=== PATIENT | female | born 1945 | race Caucasian/White ===

== ENCOUNTER 2017-07-15 06:11 | Outpatient (CLI) | payer MEDICARE, OTHER | END 2017-07-15 06:12 | disposition critical access hospital (66) | LOC: EMS 06:11 | PROVIDERS: ATTEND Surgery | DX: R07.9 Chest pain, unspecified (principal) | CPT/HCPCS: A0425; A0427 ==

== ENCOUNTER 2017-08-20 09:59 | Outpatient (CLI) | payer MEDICARE, OTHER ==
--- NOTE | 2017-08-21 17:01 | Mammography Report ---
DATE OF SERVICE: 08/20/2017 DIGITAL SCREENING MAMMOGRAM: 08/20/2017 CLINICAL INDICATION: A 72-year-old with a history of benign biopsy, for screening. COMPARISON: 07/2013, 12/2011, 07/2010. TECHNIQUE: Routine CC and MLO projections were obtained of the breasts. FINDINGS: The breasts demonstrate scattered fibroglandular densities bilaterally. There is a possible nodule in the right retroareolar breast. Further evaluation with spot compression views and possible ultrasound is recommended. A few coarse, typically benign calcifications are present. IMPRESSION: INCOMPLETE EXAMINATION. RECOMMENDATION: ADDITIONAL EVALUATION OF THE RIGHT BREAST ABOVE. BIRADS CATEGORY 0-INCOMPLETE. STANDARD QUALIFYING STATEMENTS: 1. This examination was reviewed with the aid of Computer-Aided Detection (CAD). 2. A negative or benign imaging report should not delay biopsy if clinically suspicious findings are present. Consider surgical consultation if warranted. More than 5% of cancers are not identified by imaging. 3. Dense breasts may obscure an underlying neoplasm. TD: 08/21/2017 18:01
== END 2017-08-20 10:00 | disposition home or self-care (01) ==
LOC: DI 09:59
PROVIDERS: ATTEND Physician Assistant
DX: Z12.31 Encounter for screening mammogram for malignant neoplasm of breast (principal); R92.8 Other abnormal and inconclusive findings on diagnostic imaging of breast
CPT/HCPCS: 77067

== ENCOUNTER 2017-08-20 10:00 | Outpatient (CLI) | payer MEDICARE, OTHER ==
--- NOTE | 2017-08-21 10:35 | DEXA Report ---
DEXA: 08/20/2017 CLINICAL INDICATION: Postmenopausal. TECHNIQUE: Dual energy x-ray absorptiometry (DXA) was performed on a Reel[employer] system. Regions measured are the AP spine, femoral neck, and, if needed, forearm. COMPARISON: None. In accordance with the International Society for Clinical Densitometry (ISCD) guidelines, data from previous exams may be reanalyzed using current recommendations and techniques. This is done to allow a more accurate basis for comparison with the current study. FINDINGS The data for the lumbar spine is as follows: REGION BMD (g/cm/cm) T-SCORE Z-SCORE L1 1.022 -0.9 0.6 L2 1.087 -0.9 0.6 L3 1.332 1.1 2.6 L4 1.301 0.8 2.4 TOTAL 1.197 0.1 1.7 NOTE: All evaluable vertebrae are used for classification. The data for the hip is as follows: REGION BMD (g/cm/cm) T-SCORE Z-SCORE Neck 0.821 -1.6 0.2 TOTAL 0.916 -0.7 0.8 NOTE: The femoral neck or total proximal femur, whichever is lowest, is used for classification. IMPRESSION THE WHO CLASSIFICATION BASED ON THE INTERNATIONAL REFERENCE STANDARD IS OSTEOPENIA (REFERENCE LEFT FEMORAL NECK). THE FRACTURE RISK IS INCREASED. RECOMMENDATION: Patients with diagnosis of osteoporosis or osteopenia should have regular bone mineral density assessment. For those eligible for Medicare, routine testing is allowed once every 2 years. Testing frequency can be increased for patients who have rapidly progressing disease or for those who are receiving medical therapy to restore bone mass. COMMENT: World Health Organization (WHO) definitions for osteoporosis and osteopenia: NORMAL BMD: T-score at 1.0 or higher, fracture risk is low. OSTEOPENIA BMD: T-score between 1.0 and -2.5, fracture risk is increased. OSTEOPOROSIS BMD: T-score at 2.5 or lower, fracture risk high. National Osteoporosis Foundation recommends: 1. Obtain adequate dietary calcium (at least 1200 mg per day) and vitamin D (400 -800 international units per day). 2. Participate, as appropriate, in regular weightbearing and muscle- strengthening exercise. 3. Avoid tobacco use and reduce alcohol and caffeine intake. 4. For more detailed information see the website at www.NOF.org. TD: 08/20/2017 17:52 MTDD
== END 2017-08-20 10:01 | disposition home or self-care (01) ==
LOC: DI 10:00
PROVIDERS: ATTEND Physician Assistant
DX: Z13.820 Encounter for screening for osteoporosis (principal); M85.88 Other specified disorders of bone density and structure, other site; Z78.0 Asymptomatic menopausal state
CPT/HCPCS: 77080

== ENCOUNTER 2017-11-02 11:28 | Outpatient (CLI) | payer MEDICARE, OTHER ==
--- NOTE | 2017-11-02 15:07 | Mammography Report ---
RIGHT BREAST MAMMOGRAM ADDITIONAL VIEWS; AND RIGHT BREAST ULTRASOUND: 2017 HISTORY: Followup of possible nodule on 08/20/2017 screening mammogram. TECHNIQUE: Additional true lateral and spot compression CC and MLO projections were obtained of the right breast. FINDINGS: RIGHT BREAST ADDITIONAL VIEWS: The nodular density in the subareolar right breast persists on additional views. RIGHT BREAST ULTRASOUND: Real-time scanning of the right breast in the subareolar region with saved static images reviewed. Corresponding to the finding on mammography is a 5 x 4 x 4 mm simple cyst with a single septation in the subareolar 12-o'clock position. No solid mass is seen. IMPRESSION: BENIGN FINDING RIGHT BREAST. BI-RADS 2 - BENIGN FINDINGS. RECOMMENDATIONS: SUGGEST RETURN TO ROUTINE SCREENING IN 12 MONTHS. STANDARD QUALIFYING STATEMENTS 1. This examination was reviewed with the aid of Computer-Aided Detection (CAD) . 2. A negative or benign imaging report should not delay biopsy if clinically suspicious findings are present. Consider surgical consultation if warranted. More than 5 % of cancers are not identified by imaging. 3. Dense breasts may obscure an underlying neoplasm. TD: 11/02/2017 13:18 MATTHIEU
== END 2017-11-02 11:29 | disposition home or self-care (01) ==
LOC: DI 11:28
PROVIDERS: ATTEND Physician Assistant
DX: N60.01 Solitary cyst of right breast (principal)
CPT/HCPCS: 76642

== ENCOUNTER 2018-07-24 13:13 | Outpatient (CLI) | payer MEDICARE, OTHER ==
--- NOTE | 2018-07-26 10:00 | Ultrasound Report ---
Reason: LLQ PAIN,INTERMITTENT Procedure Date: 07/24/2018 Accession Number: [id number] / [id number] Procedure: US - Pelvic w/Transvaginal CPT Code: FULL RESULT: EXAM: PELVIC ULTRASOUND EXAM DATE: 07/24/2018 01:21 PM. CLINICAL HISTORY: Intermittent left lower quadrant pain. COMPARISON: None. TECHNIQUE: Realtime transabdominal pelvic scan performed to identify the uterus and adnexa and as an overview of other pelvic structures, followed by transvaginal scan to provide greater detail of the uterus and adnexa, with static image documentation. FINDINGS: Uterus: Surgically absent. Right Ovary: 2.1 x 1.2 x 1.2 cm, volume 1.6 cc. Normal echotexture and blood flow. Left Ovary: 1.7 x 1.2 x 1.2 cm, volume 1.3 cc. Normal echotexture and blood flow. Free Fluid: None. Other: None. IMPRESSION: Normal-appearing ovaries. RADIA
== END 2018-07-24 13:14 | disposition home or self-care (01) ==
LOC: DI 13:13
PROVIDERS: ATTEND Physician Assistant
DX: R10.32 Left lower quadrant pain (principal)
CPT/HCPCS: 76830; 76856

== ENCOUNTER 2021-05-13 08:00 | Outpatient (CLI) | payer MEDICARE, OTHER | END 2021-05-13 23:59 | LOC: LAB.N 08:00 | PROVIDERS: ATTEND Nurse Practitioner | DX: U07.1 COVID-19 (principal) ==

== ENCOUNTER 2023-11-11 14:59 | Emergency (ER) | payer MEDICARE, OTHER ==
--- NOTE | 2023-11-11 15:19 | ED Physician Documentation ---
PD HPI URI - Stated complaint Stated Complaint: COUGH,SORE THROAT - Chief complaint Chief Complaint: Resp - History obtained from History obtained from: Patient - Additional information Additional information: 78-year-old woman with history of coronary disease presents with a productive cough for the last 5 days. She thinks she has bronchitis. She has had several times in the past. She had a fever 4 days ago but not since. Cough is productive of thick tannish sputum. Her is not sick. No home COVID test. PD PAST MEDICAL HISTORY - Past Medical History Past Medical History: Yes Cardiovascular: Hypertension, High cholesterol, Coronary artery disease - Past Surgical History Past Surgical History: Yes Cardiovascular: Angioplasty - Present Medications Home Medications: Ambulatory Orders Medication Instructions Recorded Confirmed Benzonatate 200 mg PO QID PRN #20 cap 11/11/23 Potassium Chloride [K-Dur] 20 meq PO ONCE 11/11/23 11/11/23 levoFLOXacin [Levofloxacin] 750 mg PO DAILY #5 tab 11/11/23 - Allergies Allergies/Adverse Reactions: Allergies Allergy/AdvReac Type Severity Reaction Status Date / Time cefaclor [From Ceclor] Allergy Dizziness Verified 11/11/23 15:02 morphine Allergy Hallucinati Verified 11/11/23 15:02 ons Penicillins Allergy Rash Verified 11/11/23 15:02 Sulfa (Sulfonamide Allergy Rash Verified 11/11/23 15:02 Antibiotics) gluten AdvReac Cramps Verified 11/11/23 15:02 - Social History Does the pt smoke?: No Smoking Status: Never smoker - Immunizations Immunizations are current?: Yes PD ED PE NORMAL - Vitals Vital signs reviewed: Yes - General General: Alert and oriented X 3, No acute distress - Cardiac Cardiac: RRR, No murmur - Respiratory Respiratory: Other (Mildly wheezy and diminished throughout without focal findings. Nonlabored. Does have a frequent cough.) - Abdomen Abdomen: Non tender Results - Vitals Vitals: Vital Signs - 24 hr 11/11/23 11/11/23 15:02 15:51 Temperature 36.3 C L Heart Rate 81 78 Respiratory 16 16 Rate Blood Pressure 182/89 H 176/86 H O2 Saturation 97 98 Oxygen O2 Source Room air - Rads (name of study) Asymmetric interstitial prominence which I suspect represents a right middle lobe pneumonia. Relevant Findings:: Final report received, EMP independent interpretation of test PD Medical Decision Making - ED course ED course: She presents with signs and symptoms consistent with a mild pneumonia. She does not appear septic. Given the x-ray findings I do think she needs antibiotics. Chose a respiratory fluoroquinolone given extensive antibiotic allergies. Departure - Departure Disposition: 01 Home, Self Care Clinical Impression: Pneumonia Condition: Good Record reviewed to determine appropriate education?: Yes Instructions: ED Pneumonia Adult Prescriptions: Benzonatate 200 mg PO QID PRN #20 cap PRN Reason: Cough levoFLOXacin [Levofloxacin] 750 mg PO DAILY #5 tab Comments: I sent your prescriptions electronically to [facility] in [place]. Call your doctor to arrange a follow-up appointment, make the next available appointment. In the interim, return anytime if worse or if new symptoms develop. Forms: PCP List Discharge Date/Time: 11/11/23 15:53
--- NOTE | 2023-11-11 15:36 | XRAY Report ---
PROCEDURE: Chest 2V INDICATIONS: cough TECHNIQUE: 2 views of the chest were acquired. COMPARISON: 07/15/2017. FINDINGS: Surgical changes and devices: None. Lungs and pleura: No pleural effusions or pneumothorax. Mild diffuse interstitial prominence.. Mediastinum: Mediastinal contours appear normal. Heart size is normal. Moderate hiatal hernia. Bones and chest wall: No suspicious bony lesions. Overlying soft tissues appear unremarkable. IMPRESSION: Mild diffuse interstitial prominence. Moderate hiatal hernia. Reviewed by: Hayder Diaz MD on 11/11/2023 3:35 PM PDT Approved by: Hayder Diaz MD on 11/11/2023 3:35 PM PDT Station ID: [id number]
[2023-11-11] MEDS: IPRATROPIUM/ALBUTEROL 3 ML NEB INH STA (15:50)
[2023-11-11 16:08] VITALS: BP 176/86; O2SAT 98
== END 2023-11-11 15:53 | disposition home or self-care (01) ==
LOC: ED 14:59
DX: J18.9 Pneumonia, unspecified organism (principal); I10 Essential (primary) hypertension; E78.00 Pure hypercholesterolemia, unspecified; I25.10 Atherosclerotic heart disease of native coronary artery without angina pectoris; Z79.899 Other long term (current) drug therapy
CPT/HCPCS: 99283; 99284

== ENCOUNTER 2024-02-10 15:11 | Emergency (ER) | payer MEDICARE, OTHER ==
[2024-02-10 15:30] VITALS: BP 197/84; O2SAT 99
[2024-02-10 16:50] LABS: BASOPHILS % (AUTO) 0.5 %; HCT - HEMATOCRIT 40.2 % (37.0-47.0); HGB - HEMOGLOBIN 13.3 g/dL (12.0-16.0); LYMPHOCYTES # (AUTO) 1.2 10^3/uL (1.5-3.5); LYMPHOCYTES % (AUTO) 21.6 %; MEAN CORPUSCULAR HEMOGLOBIN 29.6 pg (27.0-31.0); MEAN CORPUSCULAR HGB CONC 33.1 g/dL (32.0-36.0); MEAN CORPUSCULAR VOLUME 89.5 fL (81.0-99.0); MEAN PLATELET VOLUME 8.9 fL (7.9-10.8); MONOCYTES # (AUTO) 0.3 10^3/uL (0.0-1.0); MONOCYTES % (AUTO) 5.8 %; NEUTROPHILS # (AUTO) 4.1 10^3/uL (1.5-6.6); NEUTROPHILS % (AUTO) 71.7 %; PLT - PLATELET COUNT 201 10^3/uL (130-450); RED BLOOD COUNT 4.49 10^6/uL (4.20-5.40); RED CELL DISTRIBUTION WIDTH 15.1 % (12.0-15.0); WHITE BLOOD COUNT 5.7 x10^3/uL (4.8-10.8)
[2024-02-10 16:59] LABS: AMPHETAMINE SCREEN,URINE NEGATIVE (NEGATIVE); BARBITURATE SCREEN,UR NEGATIVE (NEGATIVE); BENZODIAZEPINES SCREEN, URINE NEGATIVE (NEGATIVE); BUPRENORPHINE SCREEN, URINE NEGATIVE (NEGATIVE); COCAINE SCREEN URINE NEGATIVE (NEGATIVE); METHADONE SCREEN, URINE NEGATIVE (NEGATIVE); METHAMPHETAMINES SCREEN, URINE NEGATIVE (NEGATIVE); OPIATE SCREEN, URINE NEGATIVE (NEGATIVE); OXYCODONE SCREEN, URINE NEGATIVE (NEGATIVE); THC CANNABINOID SCREEN, URINE NEGATIVE (NEGATIVE); TRICYCLIC ANTIDEPRESSANT,URINE NEGATIVE (NEGATIVE)
[2024-02-10 17:04] LABS: ALBUMIN 4.1 g/dL (3.2-5.5); ALBUMIN/GLOBULIN RATIO 1.8 (1.0-2.2); BILIRUBIN,TOTAL 0.5 mg/dL (0.2-1.0); CALCIUM 9.8 mg/dL (8.5-10.3); CREATININE 0.7 mg/dL (0.6-1.3); POTASSIUM 4.3 mmol/L (3.5-4.5); TOTAL PROTEIN 6.4 g/dL (6.4-8.9)
== END 2024-02-10 17:25 | disposition left against medical advice (07) ==
LOC: ED 15:11
DX: Z53.21 Procedure and treatment not carried out due to patient leaving prior to being seen by health care provider (principal)
CPT/HCPCS: 36415; 80053; 80306; 83690; 83735; 84484; 85025